=== PATIENT | female | born 1985 | race Caucasian/White ===

== ENCOUNTER 2017-02-28 21:19 | Emergency (ER) | payer OTHER, SELFPAY ==
[2017-02-28 21:20] VITALS: BMI 29.2
[2017-02-28 21:26] VITALS: RESP 18
--- NOTE | 2017-02-28 22:03 | ED PDOC ---
Arrival/HPI <Clive Inman - Last Filed: 02/28/17 22:21> - General Historian: Patient <Teri Mallory - Last Filed: 02/28/17 23:52> - General Chief Complaint: Lower Extremity Problem/Injury Time Seen by Provider: 02/28/17 21:34 - History of Present Illness Narrative History of Present Illness (Text): 02/28/17 22:01 31-year-old female presents today with right leg pain. Patient state she has been having increased pain to the right leg since today. Patient denies any trauma or injury. Patient states she was just sitting down and rubbed her leg and felt a lump in the back of the leg. One patient looked at it she saw a big area of ecchymosis. She denies numbness weakness or tingling in the extremity. She denies calf tenderness. Patient states she has a history of varicose veins. Denies fevers or chills. No medications have been taken for pain at home. Denies decreased range of motion of the leg. Patient states it is more painful with ambulation. (Teri Mallory) Past Medical History - Provider Review Nursing Documentation Reviewed: Yes - Travel History Have you recently traveled outside [place] w/in the past 3 mons?: No - Infectious Disease Hx of Infectious Diseases: None - Tetanus Immunization Tetanus Immunization: Unknown - Psychiatric Hx Depression: No Hx Emotional Abuse: No Hx Physical Abuse: No Hx Substance Use: No - Surgical History Hx Section: Yes (x3) - Anesthesia Hx Anesthesia: Yes Hx Anesthesia Reactions: No Hx Malignant Hyperthermia: No - Suicidal Assessment Feels Threatened In Home Enviroment: No <Teri Mallory - Last Filed: 02/28/17 23:52> Family/Social History - Physician Review Nursing Documentation Reviewed: Yes Family/Social History: Unknown Family HX Smoking Status: Never Smoked Hx Alcohol Use: No Hx Substance Use: No Hx Substance Use Treatment: No <Teri Mallory - Last Filed: 02/28/17 23:52> Allergies/Home Meds <Clive Inman - Last Filed: 02/28/17 22:21> <Teri Mallory - Last Filed: 02/28/17 23:52> Allergies/Adverse Reactions: Allergies No Known Allergies Allergy (Verified 06/01/13 19:37) Review of Systems - Review of Systems Constitutional: absent: Fatigue, Fevers Respiratory: absent: SOB, Cough Cardiovascular: absent: Chest Pain, Palpitations Gastrointestinal: absent: Abdominal Pain, Nausea, Vomiting Musculoskeletal: Arthralgias (right leg pain) Neurological: absent: Headache, Dizziness <Teri Mallory - Last Filed: 02/28/17 23:52> Physical Exam Vital Signs Reviewed: Yes Temperature: Afebrile Blood Pressure: Normal Pulse: Regular Respiratory Rate: Normal Appearance: Positive for: Well-Appearing, Non-Toxic, Comfortable Pain Distress: None Mental Status: Positive for: Alert and Oriented X 3 - Systems Exam Head: Present: Atraumatic Neck: Present: Normal Range of Motion Respiratory/Chest: Present: Clear to Auscultation, Good Air Exchange. No: Respiratory Distress, Accessory Muscle Use Cardiovascular: Present: Regular Rate and Rhythm, Normal S1, S2. No: Murmurs Lower Extremity: Present: CALF TENDERNESS, NORMAL PULSES, Normal ROM, Tenderness (right leg; there is slight swelling noted to the posterior aspect of the right proximal calf; + ecchymosis and tenderness; + varicose veins noted. ), Swelling, Temperature Abnormalties, Neurovascularly Intact, Capillary Refill < 2 s. No: Erythema, Deformity Neurological: Present: GCS=15, Speech Normal Skin: Present: Warm, Dry, Normal Color Psychiatric: Present: Alert, Oriented x 3 <Teri Mallory - Last Filed: 02/28/17 23:52> Vital Signs Temp Pulse Resp BP Pulse Ox 02/28/17 21:25 97.9 F 84 18 135/82 100 Medical Decision Making <Clive Inman - Last Filed: 02/28/17 22:21> <Teri Mallory - Last Filed: 02/28/17 23:52> ED Course and Treatment: 02/28/17 22:07 Patient is nontoxic well-appearing in no distress with stable vital signs lungs are clear to auscultation bilaterally. Venous duplex of right lower extremity: No DVT verbal report from power generation technician Toradol given IM Patient with an area of ecchymosis and swelling with calf tenderness or started today. This appears to be a rupture of a varicose vein. We will discharge the patient home with Motrin and Anibal wrap crutches and have her follow up with the primary care physician. Patient reassessment; patient is nontoxic well-appearing in no distress with stable vital signs. feeling better after medications. anibal wrap applied to right leg. I discussed the results with patient about followup with a primary care physician within the next 2 days as well as the vascular specialist for her varicose veins. I've advised return if symptoms worsen persist or if there's concerning symptoms develop. Patient verbalizes understanding of discharge instructions and need for immediate followup. all aspects of this case were discussed the attending of record. Impression: Leg pain, varicose veins Motrin every 6 hours as needed for pain Followup primary care physician within the next 2 days Follow up with the orthopedist/vascular specialist within the next 2 days Return if symptoms worsen persist or if new symptoms develop (Teri Mallory) - RAD Interpretation Radiology Orders: 02/28/17 21:58 DUPLEX LOWER EXTRM VEIN RIGHT [US] Stat - Medication Orders Current Medication Orders: Discontinued Medications Ketorolac Tromethamine (Toradol) 60 mg IM STAT STA Stop: 02/28/17 21:59 Last Admin: 02/28/17 22:13 Dose: 60 MG IM Administration Charges Document 02/28/17 22:13 HI (Rec: 02/28/17 22:13 [place] [facility] [id number] Injection Site MAR Injection Site Right Gluteus Steven Charges for Administration # of IM Administrations 1 - PA / SENIOR REACTOR OPERATOR / Resident Statement / has reviewed & agrees with the documentation as recorded. <Clive Inman - Last Filed: 02/28/17 22:21> Disposition/Present on Arrival <Clive Inman - Last Filed: 02/28/17 22:21> - Present on Arrival Any Indicators Present on Arrival: No History of DVT/PE: No History of Uncontrolled Diabetes: No Urinary Catheter: No History of Decub. Ulcer: No History Surgical Site Infection Following: None - Disposition Have Diagnosis and Disposition been Completed?: Yes Disposition Time: 23:50 Patient Plan: Discharge <Teri Mallory - Last Filed: 02/28/17 23:52> - Disposition Diagnosis: Leg pain, Varicose vein of leg Disposition: HOME/ ROUTINE Condition: GOOD Discharge Instructions (ExitCare): Varicose Veins (ED) Additional Instructions: Motrin every 6 hours as needed for pain Followup primary care physician within the next 2 days Follow up with the orthopedist/vascular specialist within the next 2 days Return if symptoms worsen persist or if new symptoms develop Prescriptions: Ibuprofen [Motrin] 600 mg PO Q6H PRN #20 tab PRN Reason: pain/fever reduction Referrals: Neo Najera MD [Staff Provider] - Follow up with primary Christofer Pino III, MD [Medical Doctor] - Follow up with primary Dani Chatterjee MD [Medical Doctor] - Follow up with primary Forms: WORK NOTE
[2017-03-01 00:12] VITALS: BP 128/76; PULSE 76; TEMP 97.7; O2SAT 99
--- NOTE | 2017-03-01 09:44 | US ---
PROCEDURE: Right lower extremity venous US HISTORY: Leg pain and swelling. Evaluate for DVT. PHYSICIAN(S): Neo Najera M.D. TECHNIQUE: Duplex sonography and color-flow Doppler with graded compression were used to evaluate the deep venous system of the right lower extremity. FINDINGS: The visualized deep venous system of the right lower extremity is sonographically normal and compressible. Normal waveforms and augmentation are seen. There is no sonographic evidence for deep venous thrombosis in the visualized segments of the right lower extremity. IMPRESSION: 1. No sonographic evidence for deep venous thrombosis in the visualized segments of the right lower extremity.
== END 2017-03-01 00:12 | disposition home or self-care (01) ==
LOC: ED 21:19
DX: I83.811 Varicose veins of right lower extremity with pain (principal)
CPT/HCPCS: 93971; 96372; 99284; J1885

== ENCOUNTER 2017-06-12 10:20 | Emergency (ER) | payer OTHER ==
[2017-06-12 10:21] VITALS: BMI 29.2
[2017-06-12 10:31] VITALS: TEMP 98.7
[2017-06-12 11:07] VITALS: BP 107/68; PULSE 78; RESP 18; O2SAT 97
--- NOTE | 2017-06-12 11:07 | ED PDOC ---
Arrival/HPI - General Chief Complaint: Lower Extremity Problem/Injury Time Seen by Provider: 06/12/17 10:58 Historian: Patient - History of Present Illness Narrative History of Present Illness (Text): 06/12/17 11:04 32-year-old female presents today with left leg pain and ecchymosis. Patient denies trauma or injury. Patient denies smoking. Denies recent travel. Patient denies . Patient states yesterday she developed achy pain in the left calf. Patient states she noticed bruising there. She denies numbness weakness or tingling in the extremity. Patient states she does have a history of varicose veins in the leg. Patient states she is able to ambulate with slight pain. No other complaints Time/Duration: Other (1 day) Symptom Onset: Sudden Symptom Course: Unchanged Quality: Aching Severity Level: Mild Past Medical History - Provider Review Nursing Documentation Reviewed: Yes - Travel History Have you recently traveled outside [place] w/in the past 3 mons?: No - Infectious Disease Hx of Infectious Diseases: None - Tetanus Immunization Tetanus Immunization: Unknown - Psychiatric Hx Substance Use: No - Surgical History Hx Section: Yes (x3) Hx Tubal Ligation: Yes - Anesthesia Hx Anesthesia: Yes Hx Anesthesia Reactions: No Hx Malignant Hyperthermia: No - Suicidal Assessment Feels Threatened In Home Enviroment: No Family/Social History - Physician Review Nursing Documentation Reviewed: Yes Family/Social History: Unknown Family HX Smoking Status: Never Smoked Hx Alcohol Use: No Hx Substance Use: No Hx Substance Use Treatment: No Allergies/Home Meds Allergies/Adverse Reactions: Allergies No Known Allergies Allergy (Verified 06/12/17 10:31) Home Medications: Home Meds Medication Instructions Recorded Confirmed No Known Home Med 06/12/17 06/12/17 Review of Systems - Review of Systems Constitutional: absent: Fatigue, Fevers Respiratory: absent: SOB, Cough Cardiovascular: absent: Chest Pain, Palpitations Gastrointestinal: absent: Abdominal Pain, Nausea, Vomiting Musculoskeletal: Arthralgias Skin: absent: Pruritis, Laceration, Abscess, Cellulitis Physical Exam Vital Signs Reviewed: Yes Vital Signs Temp Pulse Resp BP Pulse Ox 06/12/17 11:07 78 18 107/68 97 06/12/17 10:27 98.7 F 81 20 105/69 96 Temperature: Afebrile Blood Pressure: Normal Pulse: Regular Respiratory Rate: Normal Appearance: Positive for: Well-Appearing, Non-Toxic, Comfortable Pain Distress: None Mental Status: Positive for: Alert and Oriented X 3 - Systems Exam Head: Present: Atraumatic Neck: Present: Normal Range of Motion Respiratory/Chest: Present: Clear to Auscultation Cardiovascular: Present: Regular Rate and Rhythm Upper Extremity: Present: Normal Inspection Lower Extremity: Present: CALF TENDERNESS, Tenderness, Neurovascularly Intact, Capillary Refill < 2 s, Other (+ varicose veins; + ecchymosis noted to medial aspect of left calf with tenderness; no edema. ). No: Swelling, Erythema, Deformity, Temperature Abnormalties Neurological: Present: GCS=15 Skin: Present: Warm, Dry Psychiatric: Present: Alert, Oriented x 3 Medical Decision Making ED Course and Treatment: 06/12/17 11:07 Patient is nontoxic well-appearing in no distress with stable vital signs lungs are clear to auscultation bilaterally. Venous duplex of the left lower extremity; no DVT. verbal report by physics technical officer toradol given for pain. Patient reassessment; patient is nontoxic well-appearing in no distress with stable vital signs I discussed the results with patient about followup with a primary care physician within the next 2 days as well as the orthopedist. I've advised return if symptoms worsen persist or if there's concerning symptoms develop. Patient verbalizes understanding of discharge instructions and need for immediate followup. all aspects of this case were discussed the attending of record. Impression: Leg pain, varicose veins Motrin every 6 hours as needed for pain Followup primary care physician within the next 2 days Follow up with the orthopedist within the next 2 days Return if symptoms worsen persist or if new symptoms develop - RAD Interpretation Radiology Orders: 06/12/17 11:03 DUPLEX LOWER EXTRM VEIN LEFT [US] Stat - Medication Orders Current Medication Orders: Discontinued Medications Ketorolac Tromethamine (Toradol) 60 mg IM STAT STA Stop: 06/12/17 11:05 Last Admin: 06/12/17 11:18 Dose: 60 mg Disposition/Present on Arrival - Present on Arrival Any Indicators Present on Arrival: No History of DVT/PE: No History of Uncontrolled Diabetes: No Urinary Catheter: No History of Decub. Ulcer: No History Surgical Site Infection Following: None - Disposition Have Diagnosis and Disposition been Completed?: Yes Diagnosis: Leg pain, Varicose veins of left lower extremity Disposition: HOME/ ROUTINE Disposition Time: 11:08 Patient Plan: Discharge Patient Problems: Current Active Problems Problem Status Onset Leg pain Acute Varicose veins of left lower extremity Acute Condition: GOOD Discharge Instructions (ExitCare): Leg Pain (ED) Additional Instructions: Motrin every 6 hours as needed for pain Followup primary care physician within the next 2 days Follow up with the orthopedist within the next 2 days Return if symptoms worsen persist or if new symptoms develop Referrals: Sam Wilder MD [Staff Provider] - Follow up with primary Naya Doll MD [Staff Provider] - Follow up with primary [facility] [Outside] - Follow up with primary [facility] [Outside] - Follow up with primary Forms: WORK NOTE
--- NOTE | 2017-06-12 13:01 | US ---
PROCEDURE: Left lower extremity venous US HISTORY: Leg pain and swelling. Evaluate for DVT. PHYSICIAN(S): Neo Najera MD. TECHNIQUE: Duplex sonography and color-flow Doppler with graded compression were used to evaluate the deep venous system of the left lower extremity. FINDINGS: The visualized deep venous system of the left lower extremity is sonographically normal and compressible. Normal wave forms and augmentation are seen. There is no sonographic evidence for deep venous thrombosis in the visualized segments of the left lower extremity. IMPRESSION: 1. No sonographic evidence for deep venous thrombosis in the visualized segments of the left lower extremity.
== END 2017-06-12 11:53 | disposition home or self-care (01) ==
LOC: ED 10:20
DX: I83.90 Asymptomatic varicose veins of unspecified lower extremity (principal); M79.605 Pain in left leg
CPT/HCPCS: 93971; 96372; 99283; J1885

== ENCOUNTER 2018-08-05 13:34 | Emergency (ER) | payer SELFPAY ==
[2018-08-05 13:36] VITALS: BMI 29.2
[2018-08-05 13:40] VITALS: RESP 18; TEMP 98.3
[2018-08-05 15:12] VITALS: BP 122/80; PULSE 80; O2SAT 98
--- NOTE | 2018-08-05 15:27 | ED PDOC ---
Arrival/HPI - General Chief Complaint: Lower Extremity Problem/Injury Time Seen by Provider: 08/05/18 13:56 Historian: Patient - History of Present Illness Narrative History of Present Illness (Text): 08/05/18 33 yo female w/o significant PMHx come in for evaluation of Right thigh bruise noted for past few days associated with mild localized tenderness. Pt unable to recall any known trauma or injury, denies fever, chills, CP, SOB, dyspnea, cough , wheezing, denies weakness, sensory or vascular deficits to Right leg, denies use blood thinner, denies BCP use, denies hx of recent immobilization. Ambulate to Ed for evaluation, not in any apparent distress. Past Medical History - Provider Review Nursing Documentation Reviewed: Yes - Travel History Have you recently traveled outside [place] w/in the past 3 mons?: No - Past History Past History: No Previous - Infectious Disease Hx of Infectious Diseases: None - Tetanus Immunization Tetanus Immunization: Unknown - Cardiac Other/Comment: Varicose veins - Hematological/Oncological Other/Comment: Varicose veins - Musculoskeletal/Rheumatological Other/Comment: Varicose veins - Psychiatric Hx Depression: No Hx Emotional Abuse: No Hx Physical Abuse: No Hx Substance Use: No - Surgical History Hx Section: Yes (x3) Hx Tubal Ligation: Yes - Anesthesia Hx Anesthesia: Yes Hx Anesthesia Reactions: No Hx Malignant Hyperthermia: No - Suicidal Assessment Feels Threatened In Home Enviroment: No Family/Social History - Physician Review Nursing Documentation Reviewed: Yes Family/Social History: No Known Family HX Smoking Status: Never Smoked Hx Alcohol Use: No Hx Substance Use: No Hx Substance Use Treatment: No Allergies/Home Meds Allergies/Adverse Reactions: Allergies No Known Allergies Allergy (Verified 06/12/17 10:31) Home Medications: Home Meds Medication Instructions Recorded Confirmed No Known Home Med 06/12/17 08/05/18 Review of Systems - Review of Systems Constitutional: Normal Eyes: Normal ENT: Normal Respiratory: Normal Cardiovascular: Normal Gastrointestinal: Normal Genitourinary Female: Normal Musculoskeletal: Normal Skin: Other (Right thigh bruise) Neurological: Normal Endocrine: Normal Hemo/Lymphatic: Normal Psychiatric: Normal Physical Exam Vital Signs Reviewed: Yes Vital Signs Temp Pulse Resp BP Pulse Ox 08/05/18 13:40 98.3 F 89 18 116/74 96 Temperature: Afebrile Blood Pressure: Normal Pulse: Regular Respiratory Rate: Normal Appearance: Positive for: Well-Appearing, Non-Toxic, Comfortable Pain Distress: None Mental Status: Positive for: Alert and Oriented X 3 - Systems Exam Head: Present: Atraumatic, Normocephalic Conjunctiva: Present: Normal Mouth: Present: Moist Mucous Membranes Neck: Present: Trachea Midline. No: JVD, Bruit Respiratory/Chest: Present: Clear to Auscultation, Good Air Exchange. No: Respiratory Distress, Accessory Muscle Use Cardiovascular: Present: Regular Rate and Rhythm, Normal S1, S2. No: Murmurs Abdomen: No: Tenderness, Distention, Peritoneal Signs, Rebound, Guarding Back: No: CVA Tenderness Upper Extremity: Present: Normal Inspection, Normal ROM, NORMAL PULSES, Neurovascularly Intact. No: Deformity Lower Extremity: Present: NORMAL PULSES, Normal ROM, Temperature Abnormalties, Neurovascularly Intact, Capillary Refill < 2 s, Other (small ecchymoses noted to lateral aspect Right thigh). No: Edema, CALF TENDERNESS, Tenderness, Swelling, Deformity Neurological: Present: GCS=15, Speech Normal, Normal Sensory Function, Norm Deep Tendon Reflexes, Gait Normal Skin: Present: Warm, Dry, Normal Color. No: Rashes Psychiatric: Present: Alert, Oriented x 3 Medical Decision Making ED Course and Treatment: 08/05/18 On re-eval, ptis afebrile,hemodynamicaly stable. Non-toxic. Ambulatory in ED with stable gait. Pulse Ox 96% RA ENT: no acute findings neck; Supple, (-) JVD, (-) carotid bruits B/L Lungs: CTA B/L, BS equal B/L CVS: (+)S1S2, reg. Abd: benign. RLE: small ecchymoses noted to lateral aspect Right thigh. No deformity. FAROM, no neurovascular deficits. Neurologicaly intact. Pt has no risk factors for DVT, although Doppler US of RLE ordered, results review and (-) for DVT. POC- negative. Pt advised and ref. to f/u with PMD in 1-2 days for re-eval and further tx as need Return to ED if any worsening or new changes. - RAD Interpretation Radiology Orders: 08/05/18 13:56 DUPLEX LOWER EXTRM VEIN RIGHT [US] Stat Disposition/Present on Arrival - Present on Arrival Any Indicators Present on Arrival: No History of DVT/PE: No History of Uncontrolled Diabetes: No Urinary Catheter: No History of Decub. Ulcer: No History Surgical Site Infection Following: None - Disposition Have Diagnosis and Disposition been Completed?: Yes Diagnosis: Spontaneous ecchymoses Disposition: HOME/ ROUTINE Disposition Time: 14:56 Patient Plan: Discharge Condition: STABLE Discharge Instructions (ExitCare): Taking Care of Bruises Additional Instructions: Follow up with PMD in 1-2 days for further evaluation and treatment as need return if any new changes. Referrals: Funmilayo Jackson MD [Medical Doctor] - Follow up with primary
== END 2018-08-05 15:26 | disposition home or self-care (01) ==
LOC: ED 13:34
DX: R23.3 Spontaneous ecchymoses (principal)

== ENCOUNTER 2019-01-19 20:00 | Emergency (ER) | payer SELFPAY ==
[2019-01-19 20:48] VITALS: BMI 35.1
[2019-01-19 20:52] VITALS: RESP 18; TEMP 97.8
--- NOTE | 2019-01-19 23:45 | ED PDOC ---
Arrival/HPI - General Historian: Patient - History of Present Illness Narrative History of Present Illness (Text): 01/19/19 23:42 33yo female with no pmhx who present with complaint of lower back pain s/p trauma this evening. States the seat she was sitting on broke and she fell and landed on her buttocks. Denies hitting her head any where. Notes worse pain with palpation and ambulating. States she is currently ambulating with crutches secondary to ankle sprain few days ago. Denies LOC, focal weakness, dizziness, fecal/urinary incontinence, saddle anesthesia, any other complaint. <Iliana Lopez A - Last Filed: 01/19/19 23:42> <Clive Inman - Last Filed: 01/20/19 00:24> - General Chief Complaint: Hip Pain Time Seen by Provider: 01/19/19 21:20 Past Medical History - Provider Review Nursing Documentation Reviewed: Yes - Past History Past History: No Previous - Infectious Disease Hx of Infectious Diseases: None - Tetanus Immunization Tetanus Immunization: Unknown - Cardiac Other/Comment: Varicose veins - Hematological/Oncological Other/Comment: Varicose veins - Musculoskeletal/Rheumatological Other/Comment: Varicose veins. L leg calcium formation - Psychiatric Hx Depression: No Hx Substance Use: No - Surgical History Hx Section: Yes (x3) Hx Tubal Ligation: Yes - Anesthesia Hx Anesthesia: Yes Hx Anesthesia Reactions: No Hx Malignant Hyperthermia: No - Suicidal Assessment Feels Threatened In Home Enviroment: No <DiruHappiness A - Last Filed: 01/19/19 23:42> Family/Social History - Physician Review Nursing Documentation Reviewed: Yes Family/Social History: Unknown Family HX Smoking Status: Never Smoked Hx Alcohol Use: No Hx Substance Use: No Hx Substance Use Treatment: No <DiruHappiness A - Last Filed: 01/19/19 23:42> Allergies/Home Meds <DiryrnHappiness A - Last Filed: 01/19/19 23:42> <Clive Inman - Last Filed: 01/20/19 00:24> Allergies/Adverse Reactions: Allergies No Known Allergies Allergy (Verified 01/19/19 20:48) Review of Systems - Physician Review All systems were reviewed & negative as marked: Yes - Review of Systems Constitutional: Normal Eyes: Normal ENT: Normal Respiratory: Normal Cardiovascular: Normal Gastrointestinal: Normal Genitourinary Female: Normal Musculoskeletal: Back Pain Skin: Normal Neurological: Normal Endocrine: Normal Hemo/Lymphatic: Normal Psychiatric: Normal <Iliana Lopez A - Last Filed: 01/19/19 23:42> Physical Exam Vital Signs Reviewed: Yes Vital Signs Temp Pulse Resp BP Pulse Ox 01/19/19 20:52 97.8 F 70 18 117/74 98 Temperature: Afebrile Blood Pressure: Normal Pulse: Regular Respiratory Rate: Normal Appearance: Positive for: Well-Appearing, Non-Toxic, Comfortable Pain Distress: None Mental Status: Positive for: Alert and Oriented X 3 - Systems Exam Head: Present: Atraumatic, Normocephalic Pupils: Present: PERRL Extroacular Muscles: Present: EOMI Conjunctiva: Present: Normal Mouth: Present: Moist Mucous Membranes Neck: Present: Normal Range of Motion Respiratory/Chest: Present: Clear to Auscultation, Good Air Exchange. No: Respiratory Distress, Accessory Muscle Use Cardiovascular: Present: Regular Rate and Rhythm, Normal S1, S2. No: Murmurs Abdomen: No: Tenderness, Distention, Peritoneal Signs Back: Present: Midline Tenderness (Mid lower lumbar tenderness). No: Paraspinal Tenderness, Pain with Leg Raise Upper Extremity: Present: Normal Inspection. No: Cyanosis, Edema Lower Extremity: Present: Normal Inspection. No: Edema Neurological: Present: GCS=15, CN II-XII Intact, Speech Normal Skin: Present: Warm, Dry, Normal Color. No: Rashes Psychiatric: Present: Alert, Oriented x 3, Normal Insight, Normal Concentration <Iliana Lopez A - Last Filed: 01/19/19 23:42> Vital Signs Temp Pulse Resp BP Pulse Ox 01/19/19 20:52 97.8 F 70 18 117/74 98 <Clive Inman - Last Filed: 01/20/19 00:24> Medical Decision Making ED Course and Treatment: 01/19/19 23:48 33 yo female present with complaint of lower back pain PT ambulated to the ED with crutches . she was neurologically intact LS xray Flexeril On re evaluation pt remain neurologically intact LS xray - No acute fracture Result was DW the pt and she was referred to ortho. she was advised to continue with the ibuprofen she have at home for MS pain and flexeril rx was given. Advised to apply warm compress/shower to that area. - RAD Interpretation Radiology Orders: 01/19/19 22:31 LS SPINE WITH OBL > 18 YRS OLD [RAD] Stat - Medication Orders Current Medication Orders: Discontinued Medications Cyclobenzaprine HCl (Flexeril) 10 mg PO STAT STA Stop: 01/19/19 22:32 Last Admin: 01/19/19 22:47 Dose: 10 mg Ketorolac Tromethamine (Toradol) 60 mg IM STAT STA Stop: 01/19/19 22:32 <Iliana Lopez - Last Filed: 01/19/19 23:42> - RAD Interpretation Radiology Orders: 01/19/19 22:31 LS SPINE WITH OBL > 18 YRS OLD [RAD] Stat - Medication Orders Current Medication Orders: Discontinued Medications Cyclobenzaprine HCl (Flexeril) 10 mg PO STAT STA Stop: 01/19/19 22:32 Last Admin: 01/19/19 22:47 Dose: 10 mg Ketorolac Tromethamine (Toradol) 60 mg IM STAT STA Stop: 01/19/19 22:32 <Clive Inman - Last Filed: 01/20/19 00:24> - PA / DECKHAND / Resident Statement / has reviewed & agrees with the documentation as recorded. <Clive Inman - Last Filed: 01/20/19 00:24> Disposition/Present on Arrival - Present on Arrival Any Indicators Present on Arrival: No History of DVT/PE: No History of Uncontrolled Diabetes: No Urinary Catheter: No History of Decub. Ulcer: No History Surgical Site Infection Following: None - Disposition Have Diagnosis and Disposition been Completed?: Yes Disposition Time: 23:50 Patient Plan: Discharge <Iliana Lopez - Last Filed: 01/19/19 23:42> <Clive Inman - Last Filed: 01/20/19 00:24> - Disposition Diagnosis: Low back sprain Disposition: HOME/ ROUTINE Condition: STABLE Discharge Instructions (ExitCare): Lumbar Muscle Strain Additional Instructions: Follow up with your Doctor/orthopedist Return to ED for any new or worsening symptoms Prescriptions: Cyclobenzaprine [Cyclobenzaprine HCl] 10 mg PO BID #10 tab Referrals: Jose Horton DO [Staff Provider] - Follow up with primary Forms: [employer] (Kiswahili)
[2019-01-20 01:06] VITALS: BP 120/74; PULSE 75; O2SAT 100
--- NOTE | 2019-01-20 10:31 | RAD ---
Date of service: 01/19/2019 PROCEDURE: Radiographs of the Lumbar Spine. HISTORY: back pain s/p trauma COMPARISON: No prior. FINDINGS: BONES: Normal alignment. No listhesis. No fracture. DISC SPACES: Unremarkable. OTHER FINDINGS: None. IMPRESSION: Unremarkable radiographs of the lumbar spine.
== END 2019-01-20 00:14 | disposition home or self-care (01) ==
LOC: ED 20:00
DX: S33.5XXA Sprain of ligaments of lumbar spine, initial encounter (principal); W07.XXXA Fall from chair, initial encounter